=== PATIENT | female | born 1985 | race Two or more races ===

== ENCOUNTER 2018-07-12 16:30 | Emergency (ER) | payer SELFPAY ==
[~2018-07-12] VITALS: Ht 167.6 cm; Wt 80.0 kg
[2018-07-12] MEDS ORDERED: ONDANSETRON HCL 4MG/2ML INJ IV STA (18:02)
[2018-07-12] MEDS ORDERED: SODIUM CHLORIDE 0.9% 1,000 ML IV ONE (18:02)
[2018-07-12 19:26] LABS: BASOPHILS % 0.2 % (0.0-2.0); EOSINOPHILS % 0.6 % (0.0-5.0); HEMATOCRIT. 37.1 % (36.0-48.0); HEMOGLOBIN. 12.7 g/dL (12.0-16.0); LYMPHOCYTES % 11.1 % (20.0-50.0); MEAN CORPUSCULAR VOLUME 93.4 fL (81.0-99.0); MEAN PLATELET VOLUME 8.9 fl (7.4-10.4); MONOCYTES % 5.1 % (2.0-8.0); PLATELET 244 x1000/uL (130-400); RED BLOOD CELL COUNT 3.97 mill/uL (4.2-5.4); RED CELL DISTRIBUTION WIDTH 13.4 % (11.6-14.6)
[2018-07-12 19:29] LABS: CHLORIDE 103 mEq/L (98-107)
[2018-07-12 19:30] LABS: PARTIAL THROMBOPLASTIN TIME 25.7 sec (23.4-31.0); PROTHROMBIN TIME 9.7 sec (9.1-11.1)
[2018-07-12 19:33] LABS: ETHANOL BLOOD < 10 mg/dL
[2018-07-12 19:37] LABS: HCG SCREEN POSITIVE
[2018-07-12 19:55] LABS: B-HCG QUANTITATIVE 14078 mIU/mL (<3)
[2018-07-12 21:05] LABS: CLARITY URINE CLEAR (CLEAR); COLOR URINE YELLOW (YELLOW); KETONES URINE 4+ (NEGATIVE); LEUKOCYTE ESTERASE URINE NEGATIVE (NEGATIVE); NITRITE URINE NEGATIVE (NEGATIVE); OCCULT BLOOD URINE NEGATIVE (NEGATIVE); PROTEIN URINE NEGATIVE (NEGATIVE); SPECIFIC GRAVITY URINE 1.016 (1.005-1.030); UROBILINOGEN URINE 0.2 E.U./dL (0.2-1.0)
[2018-07-12 21:14] LABS: *AMPHETAMINES SCREEN URINE NEGATIVE (NEGATIVE); *BARBITURATES SCREEN URINE NEGATIVE (NEGATIVE); *BENZODIAZEPINES SCREEN URINE NEGATIVE (NEGATIVE); *COCAINE SCREEN URINE NEGATIVE (NEGATIVE); METHADONE URINE SCREEN NEGATIVE (NEGATIVE); OPIATES URINE SCREEN NEGATIVE (NEGATIVE); PHENCYCLIDINE URINE SCREEN NEGATIVE (NEGATIVE)
[2018-07-12 21:15] LABS: CANNABINOID URINE SCREEN NEGATIVE (NEGATIVE)
[2018-07-12 21:33] VITALS: BP 98/59
== END 2018-07-12 22:26 | disposition home or self-care (01) ==
LOC: ER 16:30
DX: O99.352 Diseases of the nervous system complicating pregnancy, second trimester (principal); R55 Syncope and collapse; Z3A.19 19 weeks gestation of pregnancy
CPT/HCPCS: 36415; 76805; 80053; 80305; 81003; 81025; 83690; 83880; 84484; 84702; 84703; 85025; 85610; 85730; 93005; 96361; 96374; 99284; G0482; J2405; J7030